=== PATIENT | female | born 2000 | race Hispanic/Latino ===

== ENCOUNTER 2018-10-17 10:23 | Emergency (ER) | payer MEDICAID ==
[2018-10-17] MEDS ORDERED: Albuterol Sulfate 2.5 mg/0.5 ml Neb ONE (12:02)
--- NOTE | 2018-10-17 12:12 | RAD ---
EXAM: Two views chest PROVIDED CLINICAL HISTORY: Dyspnea and wheezing. Shortness of breath. COMPARISON: None FINDINGS: Cardiac silhouette and pulmonary vasculature are within normal limits. The lungs are clear. The osse ous structures have a normal appearance. IMPRESSION: No acute cardiopulmonary process.
== END 2018-10-17 13:00 | disposition home or self-care (01) ==
LOC: ERS 10:23
DX: O99.89 Other specified diseases and conditions complicating pregnancy, childbirth and the puerperium (principal); R06.2 Wheezing; Z3A.13 13 weeks gestation of pregnancy
CPT/HCPCS: 71046; 94640; J7611

== ENCOUNTER 2019-01-28 17:28 | Emergency (ER) | payer OTHER ==
--- NOTE | 2019-01-28 18:50 | RAD ---
RIGHT KNEE FOUR VIEWS: History: Knee injury. FINDINGS: There are no signs of fracture or dislocation. There is a small joint effusion present. If internal d erangement is clinically suspected, MRI on a non-emergent basis is recommended. IMPRESSION: Small joint effusion. POS: PRIYA
[2019-01-28] MEDS ORDERED: Acetaminophen 500 MG TAB ONE (19:58)
== END 2019-01-28 19:50 | disposition home or self-care (01) ==
LOC: ERS 17:28
DX: S83.91XA Sprain of unspecified site of right knee, initial encounter (principal); S30.811A Abrasion of abdominal wall, initial encounter; S90.512A Abrasion, left ankle, initial encounter; X58.XXXA Exposure to other specified factors, initial encounter

== ENCOUNTER 2019-01-28 20:01 | Day surgery (SDC) | payer OTHER ==
[2019-01-28 20:40] VITALS: BMI 40.7
[2019-01-28] MEDS ORDERED: hydrALAZINE 20 MG/ML VIAL SLOW IVP PRN (21:15)
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
--- NOTE | 2019-01-28 23:14 | ULT ---
US Biophysical Profile HISTORY: Trauma. Body habitus. COMPARISON: None. FINDINGS: A single viable intrauterine in a cephalic presentation is noted. The placenta is anterior in location. No previa. Amniotic fluid is adequate. Amniotic fluid index of 19. heart rate 140 bpm. The biophysical profile score is 8 of a possible 8. IMPRESSION: biophysical profile score of 8 of a possible 8.
== END 2019-01-28 23:20 | disposition home or self-care (01) ==
LOC: L&D/OP 20:01
PROVIDERS: ATTEND Obstetrics & Gynecology
DX: O9A.212 Injury, poisoning and certain other consequences of external causes complicating pregnancy, second trimester (principal); S83.91XA Sprain of unspecified site of right knee, initial encounter; S90.512A Abrasion, left ankle, initial encounter; S80.212A Abrasion, left knee, initial encounter; Z3A.27 27 weeks gestation of pregnancy; V59.9XXA Occupant (driver) (passenger) of pick-up truck or van injured in unspecified traffic accident, initial encounter; Z91.048 Other nonmedicinal substance allergy status
CPT/HCPCS: 76819; 99283

== ENCOUNTER 2019-03-05 16:52 | Day surgery (SDC) | payer OTHER ==
[2019-03-05 17:29] VITALS: BP 118/73; TEMP 99.4
[2019-03-05 17:34] VITALS: BMI 39.6
[2019-03-05] MEDS ORDERED: hydrALAZINE 20 MG/ML VIAL SLOW IVP PRN (19:01)
[2019-03-05] MEDS ORDERED: diphenhydrAMINE 50 MG/ML VIAL IVP PRN (19:14)
[2019-03-05] MEDS ORDERED: Metoclopramide HCl 10 MG/2 ML VIAL IVP PRN (19:14)
[2019-03-05] MEDS ORDERED: Lactated Ringer's 1,000 ML IV SCH (19:15)
[2019-03-05 21:03] LABS: Bacteria/HPF None Seen HPF (None Seen); Bilirubin Negative (Negative); Blood, Urine Negative (Negative); Clarity Clear (Clear); Glucose, Urine (Dipstick) Normal (Negative); Leukocyte Negative Leu/uL (Negative); Nitrite Negative (Negative); Protein, Urine (Dipstick) Negative (Neg-Trace); RBC/HPF 0-3 HPF (0-3); Squamous Epithelial 0-3 HPF (0-3); Urobilinogen Normal mg/dL (Less than 2); WBC/HPF 0-3 HPF (0-3)
--- NOTE | 2019-03-05 22:52 | PRG ---
DATE OF SERVICE: 03/05/2019 PRIMARY OB: Louis Mcmillan MD CHIEF COMPLAINT: Pelvic pain and lower back pain and headache with nausea and vomiting. HISTORY OF PRESENT ILLNESS: The patient is a 18-year-old G1, P0 female with an intrauterine at 33 weeks, presenting with a 1-day history of headache with nausea, vomiting, and light sensitivity that she reports is a migraine. The patient reports that her pelvic pain began after having intercourse this morning and reports that too may be associated. She also reports that she works a lot, has two jobs, and is on her feet a lot that also may be contributing to her pain. The cramping that she has been experiencing she reports is present but is not painful and also began after having intercourse. She denies urinary urgency or frequency or dysuria. She denies any fever, fall, headache, chest pain, or shortness of breath. She has had nausea with five episodes of vomiting today. Denies diarrhea, constipation, or hip problems. She has had lower back pain. She denies any new rashes. She denies vaginal bleeding or leakage of fluid. PAST MEDICAL HISTORY: Negative. PAST SURGICAL HISTORY: She had a laparoscopic cystectomy during this in November. SOCIAL HISTORY: Denies drug, alcohol, or tobacco use. MEDICATIONS: None. ALLERGIES: NO KNOWN DRUG ALLERGIES. OB LABS: Unavailable at time of dictation. REVIEW OF SYSTEMS: Per HPI. PHYSICAL EXAMINATION: VITAL SIGNS: Blood pressure is 118/73, heart rate of 112, respiratory rate of 18, and temperature 99.4. GENERAL: She appears to be in some distress. She has her lights off when I entered due to the discomfort from the light lying in bed. She is alert, oriented, cooperative, and pleasant to interact with. HEAD: Normocephalic and atraumatic. LUNGS: Clear to auscultation bilaterally. HEART: Has a regular rate and rhythm. ABDOMEN: Gravid and soft. She has some tenderness with deviation of the uterus, right greater than left. She has some SI joint tenderness. No CVA tenderness. Some suprapubic tenderness to palpation. EXTREMITIES: Nontender, nonedematous. LABORATORY DATA: heart tracing shows the fetus with a baseline in the 150s with moderate long-term variability, positive 15 x 15 accelerations, no decelerations. No contractions visible on the monitor. Urinalysis returned. Urinalysis was negative for protein, negative for nitrites, negative for leukocyte esterase, red blood cells, white blood cells, squamous cells, and bacteria. ASSESSMENT AND PLAN: 1. The patient is a 18-year-old female with an intrauterine at 33 weeks, presenting with symptoms consistent with migraine and musculoskeletal pains of and possible urinary tract infection. I have treated her with Reglan 10 mg every 30 minutes p.r.n. for headache as well as Benadryl 25 mg IV every 1 hour p.r.n. for headache. 2. The patient has successfully had resolution of her headache and reported 0/10 pain after couple doses and 1 L of IV fluids. Results of her UA have been shared with her. The patient has expressed gratitude. We have counseled that she can take 1 g of Tylenol 3 times a day as her pain is likely musculoskeletal in nature and may have been attributed to activities associated with intercourse earlier. Fetus has a category 1 tracing and reactive NST. The patient has followup with Dr. Mcmillan in early next week. Job ID: [id number]
== END 2019-03-05 21:21 | disposition home or self-care (01) ==
LOC: L&D/OP 16:52
PROVIDERS: ATTEND Family Medicine
DX: O99.89 Other specified diseases and conditions complicating pregnancy, childbirth and the puerperium (principal); R10.2 Pelvic and perineal pain; M54.5 Low back pain; R11.2 Nausea with vomiting, unspecified; Z3A.33 33 weeks gestation of pregnancy
CPT/HCPCS: 59025; 81001; 96360; 96375; 99283; J1200; J2765